=== PATIENT | male | born 1955 | race Caucasian/White ===

== ENCOUNTER 2023-10-03 16:03 | Day surgery (SDC) | payer BC ==
[2023-10-03] MEDS ORDERED: BUPIVACAINE 0.5% VIAL IJ ONE (16:04)
[2023-10-03] MEDS ORDERED: LIDOCAINE HCL 1% 50 MG/5 ML VL PF IJ ONE (16:04)
[2023-10-03] MEDS ORDERED: Depo-Medrol 40 MG/ML IM ONE (16:04)
--- NOTE | 2023-10-03 19:11 | XRAY ---
Indication: Left shoulder and subacromial bursa injection. Intraoperative fluoroscopy provided for 25 seconds. 4 digital spot image submitted for interpretation demonstrates needle tip projecting over left glenohumeral joint superiorly. Second needle tip subacromial. Small amount of contrast injected for needle tip placement. Correlate with intraoperative findings/report. Incidental partially visualized left pacemaker.
--- NOTE | 2023-10-03 19:11 | XRAY ---
Indication: Right shoulder and subacromial bursa injection. Intraoperative fluoroscopy provided for 16 seconds. 2 digital spot image submitted for interpretation demonstrates needle tip projecting over right glenohumeral joint superiorly. Second needle tip subacromial. Small amount of contrast injected for needle tip placement. Correlate with intraoperative findings/report.
--- NOTE | 2023-10-04 08:50 | XRAY ---
16 seconds of fluoroscopy was used in surgery for a right intra-articular shoulder and subacromial bursa injection.
--- NOTE | 2023-10-04 08:50 | XRAY ---
25 seconds of fluoroscopy was used in surgery for a left intra-articular shoulder and subacromial bursa injection.
== END 2023-10-03 17:55 | disposition home or self-care (01) ==
LOC: SDC-PAIN 16:03
PROVIDERS: ATTEND Psychiatry & Neurology Pain Medicine
DX: M19.012 Primary osteoarthritis, left shoulder (principal); M19.011 Primary osteoarthritis, right shoulder
CPT/HCPCS: 20610; 73030; 77002; J1010; J2001; Q9966; J1030

== ENCOUNTER 2023-11-14 14:18 | Day surgery (SDC) | payer BC ==
[2023-11-14] MEDS ORDERED: XYLOCAINE-MPF 1% 5ML SDV IJ ONE (14:19)
[2023-11-14] MEDS ORDERED: Sodium Chloride 0.9(Preservative Free) 10 ML IJ ONE (14:19)
[2023-11-14] MEDS ORDERED: Depo-Medrol 40 MG/ML IM ONE (14:19)
--- NOTE | 2023-11-14 16:52 | XRAY ---
Indication: Lumbar MALCOLM. Intraoperative fluoroscopy provided for 25 seconds. 3 digital spot images submitted for interpretation demonstrates posterior needle tip projecting posterior to L2. Small amount of contrast injected for needle tip placement. Correlate with intraoperative findings/report.
--- NOTE | 2023-11-15 10:34 | XRAY ---
25 seconds of fluoroscopy was used in surgery for a lumbar MALCOLM.
== END 2023-11-14 16:25 | disposition home or self-care (01) ==
LOC: SDC-PAIN 14:18
PROVIDERS: ATTEND Psychiatry & Neurology Pain Medicine
DX: M54.16 Radiculopathy, lumbar region (principal)
CPT/HCPCS: 62323; 72100; 77003; J1010; Q9966

== ENCOUNTER 2023-12-05 14:11 | Day surgery (SDC) | payer BC, MEDICARE ==
[2023-12-05] MEDS ORDERED: BUPIVACAINE 0.5% VIAL IJ ONE (14:12)
[2023-12-05] MEDS ORDERED: Depo-Medrol 40 MG/ML IM ONE (14:12)
[2023-12-05] MEDS ORDERED: LIDOCAINE HCL 1% 50 MG/5 ML VL PF IJ ONE (14:12)
--- NOTE | 2023-12-05 22:15 | XRAY ---
Indication: Bilateral SI joint injection. Intraoperative fluoroscopy provided for 24 seconds. 2 digital spot images submitted for interpretation demonstrates posterior needle tip projecting over the left and right SI joint. Small amount of contrast injected for needle tip placement. Correlate with intraoperative findings/report.
--- NOTE | 2023-12-06 07:18 | XRAY ---
24 seconds of fluoroscopy were used in surgery for bilateral sacroiliac joint injections.
== END 2023-12-05 16:15 | disposition home or self-care (01) ==
LOC: SDC-PAIN 14:11
PROVIDERS: ATTEND Psychiatry & Neurology Pain Medicine
DX: M46.1 Sacroiliitis, not elsewhere classified (principal)
CPT/HCPCS: 27096; 72202; 77002; J1010; J2001; Q9966; G0260